=== PATIENT | male | born 1975 | race Caucasian/White ===

== ENCOUNTER 2016-12-28 07:01 | Emergency (ER) | payer BC ==
--- NOTE | 2016-12-28 09:08 | DIAGNOSTIC IMAGING REPORT ---
PROCEDURE: CT ABDOMEN/PELVIS W/O CONTRAST INDICATION: Left flank pain, initial encounter. TECHNIQUE: Noncontrast axial images were obtained of the entire abdomen and pelvis with sagittal and coronal reformations. COMPARISON: None. FINDINGS: ABDOMEN: 2.5 mm proximal left ureteral calculus with mild left hydro nephrosis. There is minor left perinephric edema. Punctate nonobstructing left renal lower pole calculus. Normal right kidney and ureter. Minor dependent atelectasis in both lung bases. Borderline cardiomegaly. Cholecystectomy. Liver, pancreas, spleen and adrenal glands are normal. Normal abdominal aorta. Nonspecific bowel gas pattern. PELVIS: Normal appendix. Enlarged prostate (5.6 cm). Normal bladder. There is no pelvic mass, inflammatory changes or free fluid. Moderate L5-S1 degenerative changes. IMPRESSION: 1. 2.5 mm proximal left ureteral calculus with mild left hydronephrosis 2. Nonobstructing left renal calculus 3. Cholecystectomy 4. Enlarged prostate 5. Results discussed with Dr. Camp All CT scans at this facility use dose modulation, iterative reconstruction, and/or weight-based dosing when appropriate to reduce radiation dose to as low as reasonably achievable.
--- NOTE | 2016-12-28 09:43 | ED ORDER SUMMARY ---
..... Patient: MILLY MILLER OrderSheet [facility] VisitID: [id number] [address] [place] [address] 41y, M Registration Date/Time: 12/28/2016 ORDER SHEET Weight: 97.5 kg (stated) Allergies: None GENERAL ORDERS: CT Abd/Pel wo Cont Urgent (:12/28/2016 Harsh VILLANUEVA) (Ack 7:38 Kanchan) (8:05 GMarshall R.N.) UA-Culture if indicated Urgent (:12/28/2016 Harsh VILLANUEVA) (Ack 7:38 Kanchan) (8:05 GMarshall R.N.) MEDICATION ORDERS: Oxycodone-APAP PO 10/650 mg (NOW) (:12/28/2016 Harsh VILLANUEVA) (10:35 SRoberts R.N.) Flomax PO 0.8 mg (NOW) (:12/28/2016 Harsh VILLANUEVA) (10:35 SRoberts R.N.) IV FLUIDS: IV NS : initial bolus 1000 mL (1000 mL/hr), then 250 mL/hr for 4h (NOW); Routine (07:12/28/2016 Harsh VILLANUEVA) (8:06 GMarshall R.N.) Toradol IV 30 mg (NOW) (07:36 12/28/2016 Harsh VILLANUEVA) (8:07 GMarshall R.N.) Dilaudid IV 1 mg (NOW) (07:12/28/2016 Harsh VILLANUEVA) (8:08 GMarshall R.N.) Zofran IV 4 mg (NOW) (:12/28/2016 Harsh VILLANUEVA) (8:08 GMarshall R.N.) Dilaudid IV 1 mg (NOW) (09:12/28/2016 Harsh VILLANUEVA) (9:16 GMarshall R.N.) Dilaudid IV 0.5 mg (NOW) (:12/28/2016 Harsh VILLANUEVA) (10:36 SRoberts R.N.) ORDER SHEET NOTES: [Electronically signed by Keira Ashraf R.N. (:12/28/2016)] [Electronically signed by Roldan Camp MD (00:24 12/29/2016)] [Electronically locked/signed by Keira Ashraf R.N. (:12/28/2016)]
--- NOTE | 2016-12-28 09:43 | ED CLINICAL REPORT ---
Clinical Report - Physicians/Mid Levels [facility] [address] [place] [address] 12/28/2016 7:02 [id number] Time Seen: 07:31 Dec 28 2016. Arrived- By private vehicle. Historian- patient. CPT: ER phys charges level 4 (#[id number]). HISTORY OF PRESENT ILLNESS Chief Complaint: ABDOMINAL PAIN. At its maximum, severity described as severe. When seen in the E.D., severity described as severe. Modifying factors. Not worsened by anything. Not relieved by anything. This started today This started today. ( Pt was awakened from sleep by pain at 5am). and is still present. It is described as "pain" and it is described as located in the left abdomen. The patient has had nausea. No loss of appetite, vomiting or diarrhea. Similar symptoms previously: None. Recent medical care: Not recently seen/assessed. REVIEW OF SYSTEMS No constipation, black stools, hematemesis, difficulty with urination or pain with urination. No urinary frequency, fever, sore throat, chest pain or difficulty breathing. No cough, joint pain, skin rash, chills or back pain. All systems otherwise negative, except as recorded above. PAST HISTORY No history of peptic ulcer. No history of gallstones or bowel obstruction. Has not had urinary calculi. Problems: no known problems. Surgeries: No prior abdominal surgery. Medications: None. Allergies: None. SOCIAL HISTORY No alcohol use or drug use. ADDITIONAL NOTES The nursing notes have been reviewed. PHYSICAL EXAM Vital Signs: 12/28/2016 07:10 BP: 133/89. HR: 72. RR: 18. O2 saturation: 95%. Temp: 98 F. Appearance: Alert. Appears to be in pain. Patient in moderate distress. Eyes: Pupils equal, round and reactive to light. Eyes normal inspection. ENT: Ears normal. Nose normal. Pharynx normal. Neck: Normal inspection. Neck supple. CVS: Normal heart rate and rhythm. Heart sounds normal. Pulses normal. Respiratory: No respiratory distress. Breath sounds normal. Chest nontender. Abdomen: Soft and nontender. Bowel sounds normal. Back: Normal inspection. No CVA tenderness. Skin: Skin warm. Normal skin color. No rash. Extremities: Extremities exhibit normal ROM. No lower extremity edema. Neuro: Oriented X 3. No motor deficit. No sensory deficit. Reflexes normal. LABS, X-RAYS, AND EKG Abdominal CT: A single urinary calculus is present in the left proximal ureter ([address] mm). [address] performed without contrast. The study was independently viewed by me, interpreted by the radiologist and discussed with the radiologist. Laboratory Tests: UA-Culture if indicated: (SALO: 12/28/2016 07:45) ( [id number] 12/28/2016 08:10) Final results Test Result Flag Units (Reference) URINE COLOR YELLOW URINE APPEARANCE CLEAR URINE GLUCOSE NEGATIVE (NEGATIVE) URINE BILIRUBIN NEGATIVE (NEGATIVE) URINE KETONE NEGATIVE (NEGATIVE) URINE SPECIFIC GRAVITY 1.025 (1.010-1.030) URINE PH 6.0 (5.0-8.0) URINE PROTEIN NEGATIVE (NEGATIVE) URINE UROBILINOGEN 0.2 EU/dL (0.2-1.0) URINE NITRITE NEGATIVE (NEGATIVE) URINE BLOOD 3+ (NEGATIVE) URINE LEUK ESTERASE NEGATIVE (NEGATIVE) URINE RBC 50-75 rbc/hpf (0-1) URINE WBC 0-1 wbc/hpf (0-1) URINE EPITHELIAL CELLS 0-1 EPI/hpf (0-5) 1+ MUCOUS URINE BACTERIA TRACE (<1+) (NONE SEEN) URINE COMMENT CULT NOT INDICATED URINE CULTURES ARE SET-UP BASED ON THE FOLLOWING CRITERIA:POSITIVE NITRITEPOSITIVE LEUKOCYTE ESTERASEGREATER THAN 10 WHITE BLOOD CELLSMODERATE (2+) OR GREATER BACTERIA . PROGRESS AND PROCEDURES Course of Care: IV NS Toradol 30 mg IV Zofran 4 mg IV Dilaudid 1 mg IV times 2 Dilaudid 0.5 mg IV Percocet 2 po Flomax 0.8 po Patient is stable. Symptoms better. Patient/family counseled. Disposition: Discharged. Condition: stable and improved. CLINICAL IMPRESSION Ureterolithiasis (single stone) in the left ureter with renal colic and hydronephrosis. INSTRUCTIONS No strenuous activity. Rest. Drink plenty of fluids. (strain urine for stone.). Warnings: Further evaluation is necessary. SEDATIVE MEDICATION: You were given sedative medication during your visit. Do not drive or operate dangerous machinery. GENERAL WARNINGS: Return or contact your physician immediately if your condition worsens or changes unexpectedly, if not improving as expected, or if other problems arise. Prescription Medications: Zofran (orally disintegrating tablets) 4 mg: take 1 orally every 4 hours as needed for nausea. Dispense ten (10). No refill. Oxycodone/APAP 5 mg/325 mg: take 1-2 tablets orally every 4 hours as needed for pain. Dispense thirty (30). No refill. Flomax 0.4 mg: take 1 orally every 24 hours. Dispense five (5). No refills. Substitution is permissible. Follow-up: Follow up with your doctor in two days if not better. Understanding of the discharge instructions verbalized by patient and family. (Electronically signed by Roldan Camp MD 12/29/2016 0:24)
--- NOTE | 2016-12-28 09:43 | ED NURSING NOTES ---
Clinical Report - Nurses [facility] [address] [place] [address] 12/28/2016 7:02 Patient: MILLY MILLER TRIAGE Triage time 07:10. Acuity: LEVEL 3. Chief Complaint: ABDOMINAL PAIN and (Left Lower Quadrant). Alert. No acute distress. --07:14 Barron Rothman R.N. 07:10 12/28/16. BP: 133/89. HR: 72. RR: 18. O2 saturation: 95%. Temp: 98 F. Pain level now 510. --07:14 Barron Rothman R.N. Weight: 97.5 kg stated. Height/Length: 96 inches Per Patient. BMI: 16.4. --07:14 Barron Rothman R.N. Medications None. --07:12 Barron Rothman R.N. Allergies None. --07:12 Barron Rothman R.N. History Arrived by private vehicle. Historian: patient. Accompanied by family. This started today. ( Pt was awakened from sleep by pain at 5am). Treatment HELP DESK ASSISTANT: None. PAST MEDICAL HX: Negative. SOCIAL HX: No alcohol use or drug use. FALL RISK ASSESSMENT: Fall risk assessment completed. No fall risk identified. NUTRITIONAL RISK ASSESSMENT: The nutritional risk assessment revealed no deficiencies. FUNCTIONAL ASSESSMENT: Functional assessment: no impairments noted. LEARNING NEEDS ASSESSMENT: The learning needs assessment revealed no barriers. SKIN INTEGRITY ASSESSMENT: Skin integrity risk assessment completed. No skin integrity risk identified. --07:14 Barron Rothman R.N. Interventions ID band on patient. --07:14 Barron Rothman R.N. PHYSICAL ASSESSMENT ( Last PO intake last night, Taco). GENERAL / NEURO / PSYCH: Alert. Oriented X 4. Appears in no acute distress. RESPIRATORY: Respirations not labored. GI / : Abdomen soft and nontender. Absent bowel sounds. No nausea noted. SKIN: Skin is warm and dry. --07:16 Barron Rothman R.N. NURSING PROGRESS NOTES Patient gowned. Patient identifiers checked. Call light placed in reach. Bed placed in lowest position. --07:17 Barron Rothman R.N. 08:01 12/28/2016 Site #1 started via IV in the right hand with an 20g angiocath, with aseptic technique; one attempt. Blood drawn: rainbow set. Labeled in the presence of the patient and sent to the lab. Saline lock flushed with 10 mL saline. --08:06 Barron Rothman R.N. 08:01 12/28/2016 Started bag #1 1000 mL IV Fluids IV NS (Saline); at 1000 mL/hr over 1 hour(s) via site #1 via IV pump. Allergies verified and confirmed 5 rights. IV patency established site checked: no pain, redness, or swelling. --08:06 Barron Rothman R.N. 08:02 12/28/2016 Toradol IVP 30 mg given over 2 minute(s) via site #1. --08:07 Barron Rothman R.N. 08:05 12/28/2016 Zofran (Ondansetron HCl) IVP 4 mg given over 1 minute(s) via site #1. --08:08 Barron Rothman R.N. 08:08 12/28/2016 Dilaudid (HYDROmorphone HCl PF) IVP 1 mg given over 2 minute(s) via site #1. IV patency established. IV site checked: no pain, redness, or swelling. IV flushed thoroughly pre- and post-medication administration. --08:08 Barron Rothman R.N. 08:52 12/28/16. BP: 129/80. HR: 56. RR: 14. O2 saturation: 95%. Temp: 98.2 F. Pain level now 4/10. --08:53 Barron Rothman R.N. 09:00. ( Pain is 10/10). --09:15 Barron Rothman R.N. 09:16 12/28/2016 Dilaudid (HYDROmorphone HCl PF) IVP 1 mg given over 5 minute(s) via site #1. IV patency established. IV site checked: no pain, redness, or swelling. IV flushed thoroughly pre- and post-medication administration. --09:16 Barron Rothman R.N. ( States got relief from Dilaudid, but pain is worse than ever now). --09:24 Barron Rothman R.N. 09:23 12/28/16. Pain level now 1010. --09:24 Barron Rothman R.N. 10:25 12/28/2016 Oxycodone-APAP (Oxycodone-Acetaminophen) PO 5/325 mg Tablets 2 tab given. Allergies verified, confirmed 5 rights and sedative warning given to the patient and patient's family. --10:35 Sia Chapman R.N. 10:25 12/28/2016 Flomax (Tamsulosin HCl) PO 0.8 mg given. Allergies verified and confirmed 5 rights. --10:35 Sia Chapman R.N. 10:26 12/28/2016 Dilaudid (HYDROmorphone HCl PF) IVP 0.5 mg given. via site #1. Allergies verified, confirmed 5 rights and sedative warning given to the patient. IV patency established. IV site checked: no pain, redness, or swelling. IV flushed thoroughly pre- and post-medication administration. IVP given by RN. --10:36 Sia Chapman R.N. 10:50. Reassessment after medication administered. He has had no adverse reaction. Overall patient status- he states feels better. --11:18 Keira Ashraf R.N. 10:50 12/28/2016 IV Fluids IV NS Discontinued: bag #1 infused. Total amount infused: 500 mL. IV patency established. IV site checked: no pain, redness, or swelling. IV flushed thoroughly. --11:20 Keira Ashraf R.N. DISPOSITION / DISCHARGE 11:17 12/28/16. BP: 133/85. HR: 63. RR: 15. O2 saturation: 98%. Temp: 98.3 F. Pain level now 0/10. --11:18 Keira Ashraf R.N. 10:50 12/28/2016 Site #1 removed upon discharge. Catheter intact. Manual pressure and bandaid applied. --11:19 Keira Ashraf R.N. Condition at departure: stable. No learning barriers present. Discharge instructions provided and reviewed with the patient. Reviewed medication(s) side effects, precautions, dosing and course information. Prescription(s) given to the patient. Reviewed referral to family practice for followup. Patient verbalized understanding. Written instructions provided in Austrian. The patient was discharged home and accompanied by computer security coordinator. He left the Emergency Department ambulatory and via private vehicle. Spouse driving. Medication list reviewed and validated. --11:20 Keira Ashraf R.N. Departure time: 1050. --11:21 Keira Ashraf R.N. ( correction to prior: all discharge done at 10:50). --11:21 Keira Ashraf R.N. Locked/Released at 12/28/2016 11:21 by Keira Ashraf R.N.
--- NOTE | 2016-12-28 09:43 | ED ORDER SUMMARY ---
..... Patient: MILLY MILLER OrderSheet [facility] VisitID: [id number] [address] [place] [address] 41y, M Registration Date/Time: 12/28/2016 ORDER SHEET Weight: 97.5 kg (stated) Allergies: None GENERAL ORDERS: CT Abd/Pel wo Cont Urgent (:12/28/2016 Harsh VILLANUEVA) (Ack 7:38 Kanchan) (8:05 GMarshall R.N.) UA-Culture if indicated Urgent (:12/28/2016 Harsh VILLANUEVA) (Ack 7:38 Kanchan) (8:05 GMarshall R.N.) MEDICATION ORDERS: Oxycodone-APAP PO 10/650 mg (NOW) (:12/28/2016 Harsh VILLANUEVA) (10:35 SRoberts R.N.) Flomax PO 0.8 mg (NOW) (:12/28/2016 Harsh VILLANUEVA) (10:35 SRoberts R.N.) IV FLUIDS: IV NS : initial bolus 1000 mL (1000 mL/hr), then 250 mL/hr for 4h (NOW); Routine (07:12/28/2016 Harsh VILLANUEVA) (8:06 GMarshall R.N.) Toradol IV 30 mg (NOW) (07:36 12/28/2016 Harsh VILLANUEVA) (8:07 GMarshall R.N.) Dilaudid IV 1 mg (NOW) (07:12/28/2016 Harsh VILLANUEVA) (8:08 GMarshall R.N.) Zofran IV 4 mg (NOW) (:12/28/2016 Harsh VILLANUEVA) (8:08 GMarshall R.N.) Dilaudid IV 1 mg (NOW) (09:12/28/2016 Harsh VILLANUEVA) (9:16 GMarshall R.N.) Dilaudid IV 0.5 mg (NOW) (:12/28/2016 Harsh VILLANUEVA) (10:36 SRoberts R.N.) ORDER SHEET NOTES: [Electronically signed by Keira Ashraf R.N. (:12/28/2016)] [Electronically signed by Roldan Camp MD (00:24 12/29/2016)] [Electronically locked/signed by Keira Ashraf R.N. (:12/28/2016)]
--- NOTE | 2016-12-28 09:43 | ED NURSING NOTES ---
Clinical Report - Nurses [facility] [address] [place] [address] 12/28/2016 7:02 Patient: MILLY MILLER TRIAGE Triage time 07:10. Acuity: LEVEL 3. Chief Complaint: ABDOMINAL PAIN and (Left Lower Quadrant). Alert. No acute distress. --07:14 Barron Rothman R.N. 07:10 12/28/16. BP: 133/89. HR: 72. RR: 18. O2 saturation: 95%. Temp: 98 F. Pain level now 510. --07:14 Barron Rothman R.N. Weight: 97.5 kg stated. Height/Length: 96 inches Per Patient. BMI: 16.4. --07:14 Barron Rothman R.N. Medications None. --07:12 Barron Rothman R.N. Allergies None. --07:12 Barron Rothman R.N. History Arrived by private vehicle. Historian: patient. Accompanied by family. This started today. ( Pt was awakened from sleep by pain at 5am). Treatment STATION BAGGAGE PORTER: None. PAST MEDICAL HX: Negative. SOCIAL HX: No alcohol use or drug use. FALL RISK ASSESSMENT: Fall risk assessment completed. No fall risk identified. NUTRITIONAL RISK ASSESSMENT: The nutritional risk assessment revealed no deficiencies. FUNCTIONAL ASSESSMENT: Functional assessment: no impairments noted. LEARNING NEEDS ASSESSMENT: The learning needs assessment revealed no barriers. SKIN INTEGRITY ASSESSMENT: Skin integrity risk assessment completed. No skin integrity risk identified. --07:14 Barron Rothman R.N. Interventions ID band on patient. --07:14 Barron Rothman R.N. PHYSICAL ASSESSMENT ( Last PO intake last night, Taco). GENERAL / NEURO / PSYCH: Alert. Oriented X 4. Appears in no acute distress. RESPIRATORY: Respirations not labored. GI / : Abdomen soft and nontender. Absent bowel sounds. No nausea noted. SKIN: Skin is warm and dry. --07:16 Barron Rothman R.N. NURSING PROGRESS NOTES Patient gowned. Patient identifiers checked. Call light placed in reach. Bed placed in lowest position. --07:17 Barron Rothman R.N. 08:01 12/28/2016 Site #1 started via IV in the right hand with an 20g angiocath, with aseptic technique; one attempt. Blood drawn: rainbow set. Labeled in the presence of the patient and sent to the lab. Saline lock flushed with 10 mL saline. --08:06 Barron Rothman R.N. 08:01 12/28/2016 Started bag #1 1000 mL IV Fluids IV NS (Saline); at 1000 mL/hr over 1 hour(s) via site #1 via IV pump. Allergies verified and confirmed 5 rights. IV patency established site checked: no pain, redness, or swelling. --08:06 Barron Rothman R.N. 08:02 12/28/2016 Toradol IVP 30 mg given over 2 minute(s) via site #1. --08:07 Barron Rothman R.N. 08:05 12/28/2016 Zofran (Ondansetron HCl) IVP 4 mg given over 1 minute(s) via site #1. --08:08 Barron Rothman R.N. 08:08 12/28/2016 Dilaudid (HYDROmorphone HCl PF) IVP 1 mg given over 2 minute(s) via site #1. IV patency established. IV site checked: no pain, redness, or swelling. IV flushed thoroughly pre- and post-medication administration. --08:08 Barron Rothman R.N. 08:52 12/28/16. BP: 129/80. HR: 56. RR: 14. O2 saturation: 95%. Temp: 98.2 F. Pain level now 4/10. --08:53 Barron Rothman R.N. 09:00. ( Pain is 10/10). --09:15 Barron Rothman R.N. 09:16 12/28/2016 Dilaudid (HYDROmorphone HCl PF) IVP 1 mg given over 5 minute(s) via site #1. IV patency established. IV site checked: no pain, redness, or swelling. IV flushed thoroughly pre- and post-medication administration. --09:16 Barron Rothman R.N. ( States got relief from Dilaudid, but pain is worse than ever now). --09:24 Barron Rothman R.N. 09:23 12/28/16. Pain level now 1010. --09:24 Barron Rothman R.N. 10:25 12/28/2016 Oxycodone-APAP (Oxycodone-Acetaminophen) PO 5/325 mg Tablets 2 tab given. Allergies verified, confirmed 5 rights and sedative warning given to the patient and patient's family. --10:35 Sia Chapman R.N. 10:25 12/28/2016 Flomax (Tamsulosin HCl) PO 0.8 mg given. Allergies verified and confirmed 5 rights. --10:35 Sia Chapman R.N. 10:26 12/28/2016 Dilaudid (HYDROmorphone HCl PF) IVP 0.5 mg given. via site #1. Allergies verified, confirmed 5 rights and sedative warning given to the patient. IV patency established. IV site checked: no pain, redness, or swelling. IV flushed thoroughly pre- and post-medication administration. IVP given by RN. --10:36 Sia Chapman R.N. 10:50. Reassessment after medication administered. He has had no adverse reaction. Overall patient status- he states feels better. --11:18 Keira Ashraf R.N. 10:50 12/28/2016 IV Fluids IV NS Discontinued: bag #1 infused. Total amount infused: 500 mL. IV patency established. IV site checked: no pain, redness, or swelling. IV flushed thoroughly. --11:20 Keira Ashraf R.N. DISPOSITION / DISCHARGE 11:17 12/28/16. BP: 133/85. HR: 63. RR: 15. O2 saturation: 98%. Temp: 98.3 F. Pain level now 0/10. --11:18 Keira Ashraf R.N. 10:50 12/28/2016 Site #1 removed upon discharge. Catheter intact. Manual pressure and bandaid applied. --11:19 Keira Ashraf R.N. Condition at departure: stable. No learning barriers present. Discharge instructions provided and reviewed with the patient. Reviewed medication(s) side effects, precautions, dosing and course information. Prescription(s) given to the patient. Reviewed referral to family practice for followup. Patient verbalized understanding. Written instructions provided in Russian. The patient was discharged home and accompanied by retail area manager. He left the Emergency Department ambulatory and via private vehicle. Spouse driving. Medication list reviewed and validated. --11:20 Keira Ashraf R.N. Departure time: 1050. --11:21 Keira Ashraf R.N. ( correction to prior: all discharge done at 10:50). --11:21 Keira Ashraf R.N. Locked/Released at 12/28/2016 11:21 by Keira Ashraf R.N.
--- NOTE | 2016-12-29 00:24 | ED DISCHARGE INSTRUCTIONS ---
Patient: MILLY MILLER General Instructions [facility] VisitID: [id number] [address] [place] [address] 41y, M Registration Date/Time: 12/28/2016 Ureterolithiasis (single stone) in the left ureter with renal colic and hydronephrosis. INSTRUCTIONS No strenuous activity. Rest. Drink plenty of fluids. (strain urine for stone.). Warnings: Further evaluation is necessary. SEDATIVE MEDICATION: You were given sedative medication during your visit. Do not drive or operate dangerous machinery. GENERAL WARNINGS: Return or contact your physician immediately if your condition worsens or changes unexpectedly, if not improving as expected, or if other problems arise. Prescription Medications: Zofran (orally disintegrating tablets) 4 mg: take 1 orally every 4 hours as needed for nausea. Dispense ten (10). No refill. Oxycodone/APAP 5 mg/325 mg: take 1-2 tablets orally every 4 hours as needed for pain. Dispense thirty (30). No refill. Flomax 0.4 mg: take 1 orally every 24 hours. Dispense five (5). No refills. Substitution is permissible. Follow-up: Follow up with your doctor in two days if not better. Understanding of the discharge instructions verbalized by patient and family. ADDITIONAL INFORMATION Kidney Stone (W/ Colic) The sharp cramping pain and nausea/vomiting that you have is due to a small stone which has formed in the kidney and is now passing down a narrow tube (ureter) on its way to your bladder. Once it reaches your bladder, the pain will stop. The stone may pass in your urine stream in one piece. [The size may be 1/16" to 1/4" (1-6mm)]. Or, the stone may also break up into zackary fragments which you may not even notice. Once you have had a kidney stone, you are at risk for developing another one in the future. Home Care: Drink plenty of fluids (at least 8 to 10 glasses of water a day). Most stones will pass on their own, but may take from a few hours to a few days. Sometimes the stone is too large to pass by itself and special methods will have to be used to remove the stone. Each time you urinate, do so in a jar. Pour the urine from the jar through the strainer and into the toilet. Continue doing this until 24 hours after your pain stops. By then, if there was a kidney stone, it should pass from your bladder. Some stones dissolve into sand-like particles and pass right through the strainer. In that case, you wont ever see a stone. Save any stone that you find in the strainer and bring it to your doctor for analysis. It may be possible to prevent certain types of stones from forming. Therefore, it is important to know what kind of stone you have. Try to stay as active as possible since this will help the stone pass. Do not stay in bed unless your pain prevents you from getting up. You may notice a red, pink or brown color to your urine. This is normal while passing a kidney stone. Follow Up with your doctor or return to this facility if the pain lasts more than 48 hours. Get Prompt Medical Attention if any of the following occur: Pain that is not controlled by the medicine given Repeated vomiting or unable to keep down fluids Weakness, dizziness or fainting Fever of 100.4F (38C) or higher, or as directed by your healthcare provider Passage of solid red or brown urine (can't see through it) or urine with lots of blood clots Unable to pass urine for 8 hours and increasing bladder pressure Ondansetron Oral disintegrating tablet What is this medicine? ONDANSETRON (on SHAILESH se crystal) is used to treat nausea and vomiting caused by chemotherapy. It is also used to prevent or treat nausea and vomiting after surgery. How should I use this medicine? These tablets are made to dissolve in the mouth. Do not try to push the tablet through the foil backing. With dry hands, peel away the foil backing and gently remove the tablet. Place the tablet in the mouth and allow it to dissolve, then swallow. While you may take these tablets with water, it is not necessary to do so. Talk to your test rider regarding the use of this medicine in children. Special care may be needed. What side effects may I notice from receiving this medicine? Side effects that you should report to your doctor or health intensive care ambulance paramedic as soon as possible: allergic reactions like skin rash, itching or hives, swelling of the face, lips, or tongue breathing problems dizziness fast or irregular heartbeat feeling faint or lightheaded, falls fever and chills swelling of the hands and feet tightness in the chest Side effects that usually do not require medical attention (report to your doctor or health intensive care ambulance paramedic if they continue or are bothersome): constipation or diarrhea headache What may interact with this medicine? Do not take this medicine with any of the following medications: -apomorphine -cisapride -dofetilide -dronedarone -pimozide -thioridazine -ziprasidone This medicine may also interact with the following medications: -carbamazepine -phenytoin -rifampicin -tramadol -other medicines that prolong the QT interval (cause an abnormal heart rhythm) What if I miss a dose? If you miss a dose, take it as soon as you can. If it is almost time for your next dose, take only that dose. Do not take double or extra doses. Where should I keep my medicine? Keep out of the reach of children. Store between 2 and 30 degrees C (36 and 86 degrees F). Throw away any unused medicine after the expiration date. What should I tell my health care provider before I take this medicine? They need to know if you have any of these conditions: heart disease history of irregular heartbeat liver disease low levels of magnesium or potassium in the blood an unusual or allergic reaction to ondansetron, granisetron, other medicines, foods, dyes, or preservatives or trying to get breast-feeding What should I watch for while using this medicine? Check with your doctor or health intensive care ambulance paramedic as soon as you can if you have any sign of an allergic reaction. Oxycodone Hydrochloride, Acetaminophen Oral tablet What is this medicine? ACETAMINOPHEN; OXYCODONE (a set a JOE afsaneh fen; ox i KOE done) is a pain reliever. It is used to treat mild to moderate pain. How should I use this medicine? Take this medicine by mouth with a full glass of water. Follow the directions on the prescription label. Take your medicine at regular intervals. Do not take your medicine more often than directed. Talk to your test rider regarding the use of this medicine in children. Special care may be needed. Patients over 65 years old may have a stronger reaction and need a smaller dose. What side effects may I notice from receiving this medicine? Side effects that you should report to your doctor or health intensive care ambulance paramedic as soon as possible: allergic reactions like skin rash, itching or hives, swelling of the face, lips, or tongue breathing difficulties, wheezing confusion light headedness or fainting spells severe stomach pain yellowing of the skin or the whites of the eyes Side effects that usually do not require medical attention (report to your doctor or health intensive care ambulance paramedic if they continue or are bothersome): dizziness drowsiness nausea vomiting What may interact with this medicine? alcohol antihistamines barbiturates like amobarbital, butalbital, butabarbital, methohexital, pentobarbital, phenobarbital, thiopental, and secobarbital benztropine drugs for bladder problems like solifenacin, trospium, oxybutynin, tolterodine, hyoscyamine, and methscopolamine drugs for breathing problems like ipratropium and tiotropium drugs for certain stomach or intestine problems like propantheline, homatropine methylbromide, glycopyrrolate, atropine, belladonna, and dicyclomine general anesthetics like etomidate, ketamine, nitrous oxide, propofol, desflurane, enflurane, halothane, isoflurane, and sevoflurane medicines for depression, anxiety, or psychotic disturbances medicines for sleep muscle relaxants naltrexone narcotic medicines (opiates) for pain phenothiazines like perphenazine, thioridazine, chlorpromazine, mesoridazine, fluphenazine, prochlorperazine, promazine, and trifluoperazine scopolamine tramadol trihexyphenidyl What if I miss a dose? If you miss a dose, take it as soon as you can. If it is almost time for your next dose, take only that dose. Do not take double or extra doses. Where should I keep my medicine? Keep out of the reach of children. This medicine can be abused. Keep your medicine in a safe place to protect it from theft. Do not share this medicine with anyone. Selling or giving away this medicine is dangerous and against the law. Store at room temperature between 20 and 25 degrees C (68 and 77 degrees F). Keep container tightly closed. Protect from light. This medicine may cause accidental overdose and if it is taken by other adults, children, or pets. Flush any unused medicine down the toilet to reduce the chance of harm. Do not use the medicine after the expiration date. What should I tell my health care provider before I take this medicine? They need to know if you have any of these conditions: brain tumor Crohn's disease, inflammatory bowel disease, or ulcerative colitis drink more than 3 alcohol containing drinks per day drug abuse or addiction head injury heart or circulation problems kidney disease or problems going to the bathroom liver disease lung disease, asthma, or breathing problems an unusual or allergic reaction to acetaminophen, oxycodone, other opioid analgesics, other medicines, foods, dyes, or preservatives or trying to get breast-feeding What should I watch for while using this medicine? Tell your doctor or health intensive care ambulance paramedic if your pain does not go away, if it gets worse, or if you have new or a different type of pain. You may develop tolerance to the medicine. Tolerance means that you will need a higher dose of the medication for pain relief. Tolerance is normal and is expected if you take this medicine for a long time. Do not suddenly stop taking your medicine because you may develop a severe reaction. Your body becomes used to the medicine. This does NOT mean you are addicted. Addiction is a behavior related to getting and using a drug for a non-medical reason. If you have pain, you have a medical reason to take pain medicine. Your doctor will tell you how much medicine to take. If your doctor wants you to stop the medicine, the dose will be slowly lowered over time to avoid any side effects. You may get drowsy or dizzy. Do not drive, use machinery, or do anything that needs mental alertness until you know how this medicine affects you. Do not stand or sit up quickly, especially if you are an older patient. This reduces the risk of dizzy or fainting spells. Alcohol may interfere with the effect of this medicine. Avoid alcoholic drinks. There are different types of narcotic medicines (opiates) for pain. If you take more than one type at the same time, you may have more side effects. Give your health care provider a list of all medicines you use. Your doctor will tell you how much medicine to take. Do not take more medicine than directed. Call emergency for help if you have problems breathing. The medicine will cause constipation. Try to have a bowel movement at least every 2 to 3 days. If you do not have a bowel movement for 3 days, call your doctor or health intensive care ambulance paramedic. Do not take Tylenol (acetaminophen) or medicines that have acetaminophen with this medicine. Too much acetaminophen can be very dangerous. Many nonprescription medicines contain acetaminophen. Always read the labels carefully to avoid taking more acetaminophen. You have been given the following additional information: Kidney Stone W/ Colic Ondansetron Oral disintegrating tablet Oxycodone Hydrochloride, Acetaminophen Oral tablet No strenuous activity. Rest. (Electronically signed by Roldan Camp MD 12/29/2016 0:24)
--- NOTE | 2016-12-29 00:24 | ED MED RECONCILIATION SUMMARY ---
Patient: MILLY MILLER Medication Reconciliation Report [facility] VisitID: [id number] [address] [place] [address] 41y, M Registration Date/Time: 12/28/2016 Weight: 97.5 kg Height/Length: 96 in. BMI: 16.4 ALLERGIES: None The patient's Home Medications are listed below: NONE. The source(s) of the original Home Medication information: Not obtained. The following Medications were given to the patient in the Emergency Department: IV NS IV Fluids bolus 0, then 1000 mL/hr, administered: 12/28/2016 8:01:00 AM Toradol [IVP] IVP 30 mg, administered: 12/28/2016 8:02:00 AM Zofran [IVP] IVP 4 mg, administered: 12/28/2016 8:05:00 AM Dilaudid [IVP] IVP 1 mg, administered: 12/28/2016 8:08:00 AM Dilaudid [IVP] IVP 1 mg, administered: 12/28/2016 9:16:00 AM Oxycodone-APAP [PO] PO 2 tab, administered: 12/28/2016 10:25:00 AM Flomax [PO] PO 0.8 mg, administered: 12/28/2016 10:25:00 AM Dilaudid [IVP] IVP 0.5 mg, administered: 12/28/2016 10:26:00 AM The following Medications were prescribed to the patient: Zofran (orally disintegrating tablets) 4 mg: take 1 orally every 4 hours as needed for nausea. Dispense ten (10). No refill. -- Roldan Camp MD Oxycodone/APAP 5 mg/325 mg: take 1-2 tablets orally every 4 hours as needed for pain. Dispense thirty (30). No refill. -- Roldan Camp MD Flomax 0.4 mg: take 1 orally every 24 hours. Dispense five (5). No refills. Substitution is permissible. -- Rodlan Camp MD
--- NOTE | 2016-12-29 00:24 | ED MAR SUMMARY ---
..... Medication Administration Record [facility] [address] [facility] [place] [address] Patient: MILLY MILLER Visit ID: [id number] 41y, M Weight: 97.5 kg Height/Length: 96 in BMI: 16.4 ALLERGIES: None Start 08:01 12/28/2016 Barron Rothman R.N., Stop 10:50 12/28/2016 Keira Ashraf R.N. Medication Administered: IV NS (SALINE), Dose: IV Fluids over 1 hour(s), Rate: 1000 mL/hr, Dispensed: 1000 mL bag, Site: #1 right hand. Medication Ordered: IV NS : initial bolus 1000 mL (1000 mL/hr), then 250 mL/hr for 4h (NOW); Routine. Given 08:02 12/28/2016 Bar[place] Rothman R.N. Medication Administered: TORADOL [IVP], Dose: 30 mg IVP over 2 minute(s), Site: #1 right hand. Medication Ordered: Toradol IV 30 mg (NOW). Given 08:05 12/28/2016 Bar[place] Rothman R.N. Medication Administered: ZOFRAN [IVP] (ONDANSETRON HCL), Dose: 4 mg IVP over 1 minute(s), Site: #1 right hand. Medication Ordered: Zofran IV 4 mg (NOW). Given 08:08 12/28/2016 Bar[place] Rothman R.N. Medication Administered: DILAUDID [IVP] (HYDROMORPHONE HCL PF), Dose: 1 mg IVP over 2 minute(s), Site: #1 right hand. Medication Ordered: Dilaudid IV 1 mg (NOW). Given 09:16 12/28/2016 Bar[place] Rothman R.N. Medication Administered: DILAUDID [IVP] (HYDROMORPHONE HCL PF), Dose: 1 mg IVP over 5 minute(s), Site: #1 right hand. Medication Ordered: Dilaudid IV 1 mg (NOW). Given 10:25 12/28/2016 Sia Chapman R.N. Medication Administered: OXYCODONE-APAP [PO] (OXYCODONE-ACETAMINOPHEN), Dose: 2 tab 5/325 mg Tablets PO. Medication Ordered: Oxycodone-APAP PO 10/650 mg (NOW). Given 10:25 12/28/2016 Sia Chapman R.N. Medication Administered: FLOMAX [PO] (TAMSULOSIN HCL), Dose: 0.8 mg PO. Medication Ordered: Flomax PO 0.8 mg (NOW). Given 10:12/28/2016 Sia Chapman R.N. Medication Administered: DILAUDID [IVP] (HYDROMORPHONE HCL PF), Dose: 0.5 mg IVP, Site: #1 right hand. Medication Ordered: Dilaudid IV 0.5 mg (NOW).
--- NOTE | 2016-12-29 00:24 | ED MAR SUMMARY ---
..... Medication Administration Record [facility] [address] [facility] [place] [address] Patient: MILLY MILLER Visit ID: [id number] 41y, M Weight: 97.5 kg Height/Length: 96 in BMI: 16.4 ALLERGIES: None Start 08:01 12/28/2016 Bar[place] Rothman R.N., Stop 10:50 12/28/2016 Keira Ashraf R.N. Medication Administered: IV NS (SALINE), Dose: IV Fluids over 1 hour(s), Rate: 1000 mL/hr, Dispensed: 1000 mL bag, Site: #1 right hand. Medication Ordered: IV NS : initial bolus 1000 mL (1000 mL/hr), then 250 mL/hr for 4h (NOW); Routine. Given 08:02 12/28/2016 Bar[place] Rothman R.N. Medication Administered: TORADOL [IVP], Dose: 30 mg IVP over 2 minute(s), Site: #1 right hand. Medication Ordered: Toradol IV 30 mg (NOW). Given 08:05 12/28/2016 Bar[place] Rothman R.N. Medication Administered: ZOFRAN [IVP] (ONDANSETRON HCL), Dose: 4 mg IVP over 1 minute(s), Site: #1 right hand. Medication Ordered: Zofran IV 4 mg (NOW). Given 08:08 12/28/2016 Bar[place] Rothman R.N. Medication Administered: DILAUDID [IVP] (HYDROMORPHONE HCL PF), Dose: 1 mg IVP over 2 minute(s), Site: #1 right hand. Medication Ordered: Dilaudid IV 1 mg (NOW). Given 09:16 12/28/2016 Bar[place] Rothman R.N. Medication Administered: DILAUDID [IVP] (HYDROMORPHONE HCL PF), Dose: 1 mg IVP over 5 minute(s), Site: #1 right hand. Medication Ordered: Dilaudid IV 1 mg (NOW). Given 10:25 12/28/2016 Sia Chapman R.N. Medication Administered: OXYCODONE-APAP [PO] (OXYCODONE-ACETAMINOPHEN), Dose: 2 tab 5/325 mg Tablets PO. Medication Ordered: Oxycodone-APAP PO 10/650 mg (NOW). Given 10:25 12/28/2016 Sia Chapman R.N. Medication Administered: FLOMAX [PO] (TAMSULOSIN HCL), Dose: 0.8 mg PO. Medication Ordered: Flomax PO 0.8 mg (NOW). Given 10:12/28/2016 Sia Chapman R.N. Medication Administered: DILAUDID [IVP] (HYDROMORPHONE HCL PF), Dose: 0.5 mg IVP, Site: #1 right hand. Medication Ordered: Dilaudid IV 0.5 mg (NOW).
--- NOTE | 2016-12-29 00:24 | ED MED RECONCILIATION SUMMARY ---
Patient: MILLY MILLER Medication Reconciliation Report [facility] VisitID: [id number] [address] [place] [address] 41y, M Registration Date/Time: 12/28/2016 Weight: 97.5 kg Height/Length: 96 in. BMI: 16.4 ALLERGIES: None The patient's Home Medications are listed below: NONE. The source(s) of the original Home Medication information: Not obtained. The following Medications were given to the patient in the Emergency Department: IV NS IV Fluids bolus 0, then 1000 mL/hr, administered: 12/28/2016 8:01:00 AM Toradol [IVP] IVP 30 mg, administered: 12/28/2016 8:02:00 AM Zofran [IVP] IVP 4 mg, administered: 12/28/2016 8:05:00 AM Dilaudid [IVP] IVP 1 mg, administered: 12/28/2016 8:08:00 AM Dilaudid [IVP] IVP 1 mg, administered: 12/28/2016 9:16:00 AM Oxycodone-APAP [PO] PO 2 tab, administered: 12/28/2016 10:25:00 AM Flomax [PO] PO 0.8 mg, administered: 12/28/2016 10:25:00 AM Dilaudid [IVP] IVP 0.5 mg, administered: 12/28/2016 10:26:00 AM The following Medications were prescribed to the patient: Zofran (orally disintegrating tablets) 4 mg: take 1 orally every 4 hours as needed for nausea. Dispense ten (10). No refill. -- Roldan Camp MD Oxycodone/APAP 5 mg/325 mg: take 1-2 tablets orally every 4 hours as needed for pain. Dispense thirty (30). No refill. -- Roldan Camp MD Flomax 0.4 mg: take 1 orally every 24 hours. Dispense five (5). No refills. Substitution is permissible. -- Roldan Camp MD
== END 2016-12-28 11:12 | disposition home or self-care (01) ==
LOC: ED SRH 07:01
DX: N13.2 Hydronephrosis with renal and ureteral calculous obstruction (principal)
CPT/HCPCS: 90004